=== PATIENT | female | born 1980 | race Caucasian/White ===

== ENCOUNTER 2018-12-22 16:07 | Emergency (ER) | payer OTHER ==
[~2018-12-22] VITALS: Ht 167.6 cm; Wt 61.2 kg
[2018-12-22] MEDS ORDERED: XANAX 0.5 MG0.5 MG PO (16:37)
[2018-12-22] MEDS ORDERED: CELEXA10 MG PO (16:37)
[2018-12-22] MEDS ORDERED: ALLEGRA-D 12 H1 EAC1 PO (16:38)
[2018-12-22 17:34] VITALS: BP 124/61
== END 2018-12-22 17:35 | disposition home or self-care (01) ==
LOC: M.ERS 16:07
DX: F41.9 Anxiety disorder, unspecified (principal)